=== PATIENT | female | born 1970 | race Caucasian/White ===

== ENCOUNTER 2024-04-13 11:30 | Outpatient (CLI) | payer OTHER, SELFPAY ==
--- NOTE | 2024-04-13 13:46 | W.ANESCHARGE ---
Anesthesia Charges Start Date/Time Anesthesia Start Date: 04/13/24 Anesthesia Start Time: 12:57 Stop Date/Time Anesthesia Stop Date: 04/13/24 Anesthesia Stop Time: 13:47 Coding CPT Codes CPT Codes: ANES UPR LWR GI NDSC PX - [id number] ([id number]) P2 - PATIENT W/MILD SYST DISEASE, QK - HUMAN RESOURCES ANALYST 2-4 CNCRNT ANES PROC, QX - CAREER TECHNICAL COUNSELOR SVC W/ MD MED DIRECTION
--- NOTE | 2024-04-13 14:03 | W.ANESCHARGE ---
Anesthesia Charges Start Date/Time Anesthesia Start Date: 04/13/24 Anesthesia Start Time: 12:57 Stop Date/Time Anesthesia Stop Date: 04/13/24 Anesthesia Stop Time: 13:47 Coding CPT Codes CPT Codes: ANES UPR LWR GI NDSC PX - 94752 ([id number]) P2 - PATIENT W/MILD SYST DISEASE, QK - CERTIFIED ALCOHOL COUNSELOR 2-4 CNCRNT ANES PROC, QX - PACKER SVC W/ MD MED DIRECTION
== END 2024-04-13 11:31 | disposition home or self-care (01) ==
LOC: OP CLINIC 11:35
PROVIDERS: PCP Family Medicine; Visit Provider Internal Medicine Gastroenterology
DX: R10.12 Left upper quadrant pain (principal); R11.2 Nausea with vomiting, unspecified; K52.9 Noninfective gastroenteritis and colitis, unspecified; R93.3 Abnormal findings on diagnostic imaging of other parts of digestive tract
CPT/HCPCS: 00813; 43239; 45380; 88305; J2405; J2704